=== PATIENT | male | born 1945 | race Caucasian/White ===

== ENCOUNTER 2018-02-19 08:40 | Emergency (ER) | payer MEDICARE ==
[~2018-02-19] VITALS: Ht 177.8 cm; Wt 100.0 kg
[2018-02-19 08:41] VITALS: BP 135/81
[2018-02-19] MEDS ORDERED: ciprofloxacin 250mg tablet PO ONE (09:00)
[2018-02-19] MEDS ORDERED: TETanus/Pertussis (Acell)/Diphther VAC/PF (Tdap-Adult) 0.5ml syringe IM ONE (09:00)
[2018-02-19] MEDS ORDERED: CIPR-230 PO (09:06)
== END 2018-02-19 09:22 | disposition home or self-care (01) ==
LOC: ER 08:40
DX: T25.221A Burn of second degree of right foot, initial encounter (principal); T31.0 Burns involving less than 10% of body surface; I10 Essential (primary) hypertension; E11.9 Type 2 diabetes mellitus without complications; F17.200 Nicotine dependence, unspecified, uncomplicated; Z79.899 Other long term (current) drug therapy
CPT/HCPCS: 82948; 90471; 90715; 99283; A6255; 16020; 99284

== ENCOUNTER 2020-05-18 11:02 | Emergency (ER) | payer MEDICARE ==
[~2020-05-18] VITALS: Ht 177.8 cm; Wt 107.0 kg
[2020-05-18] MEDS ORDERED: CLIN150C8 PO (12:06)
[2020-05-18 12:10] VITALS: BP 107/64
== END 2020-05-18 12:22 | disposition home or self-care (01) ==
LOC: ER 11:03
DX: M70.22 Olecranon bursitis, left elbow (principal); I10 Essential (primary) hypertension; Z79.899 Other long term (current) drug therapy
CPT/HCPCS: 99284

== ENCOUNTER 2021-05-23 05:55 | Day surgery (SDC) | payer MEDICARE ==
[2021-05-22 12:41] LABS: ANION GAP 10 (8-16); BLOOD UREA NITROGEN 37 MG/DL (7-18); BUN/CREATININE RATIO 20.9 (5.4-32.0); CALCIUM 9.1 MG/DL (8.5-10.1); CHLORIDE 106 MMOL/L (99-107); CREATININE 1.77 MG/DL (0.60-1.10); GLUCOSE 116 MG/DL (70-104); SODIUM 144 MMOL/L (135-145); TOTAL CARBON DIOXIDE 27.9 MMOL/L (24-32); eGFR 38 ML/MIN
[2021-05-22 12:45] LABS: PARTIAL THROMBOPLASTIN TIME 25 SECONDS (22-32)
[2021-05-22 13:08] LABS: BASOPHILS # (AUTO) 0.1 X10'3 (0-0.2); EOSINOPHILS # (AUTO) 0.1 X10'3 (0-0.9); HEMATOCRIT 37.7 % (42.0-52.0); LYMPHOCYTES # (AUTO) 1.5 X10'3 (1.1-4.8); MONOCYTES # (AUTO) 0.6 X10'3 (0-0.9); NEUTROPHILS # (AUTO) 3.4 X10'3 (1.8-7.7); PLATELET COUNT 205 X10'3 (140-440)
[2021-05-22 13:10] LABS: BASOPHILS % (AUTO) 1.2 % (0-1); HEMOGLOBIN 13.4 g/dl (14.0-17.9); LYMPHOCYTES % (AUTO) 26.5 % (21-51); MEAN CORPUSCULAR HEMOGLOBIN 38.4 PG (27.0-31.0); MEAN CORPUSCULAR HGB CONC 35.6 g/dL (33.0-36.5); MEAN CORPUSCULAR VOLUME 107.6 FL (78-98); MEAN PLATELET VOLUME 9.3 FL (7.4-10.4); MONOCYTES % (AUTO) 10.7 % (2-12); NEUTROPHILS % (AUTO) 59.6 % (42-75); RED CELL DISTRIBUTION WIDTH 12.7 % (11.5-14.5); WHITE BLOOD COUNT 5.8 X10'3 (4.5-11.0)
[~2021-05-23] VITALS: Ht 172.7 cm; Wt 107.0 kg
[2021-05-23] VITALS (12 sets, daily range): BP systolic 120–150; BP diastolic 52–81
[~2021-05-23 05:55] MED LIST: CLIN150C8 PO
[2021-05-23] MEDS ORDERED: normal saline 1,000 ML IV SCH (06:15)
[2021-05-23] MEDS ORDERED: LIDOcaine/PRILOcaine 5gm cream TP ONE (06:15)
[2021-05-23] MEDS ORDERED: LORazepam 0.5 MG tablet PO PRN (06:15)
[2021-05-23] MEDS ORDERED: diphenhydrAMINE 25mg capsule PO PRN (06:15)
[2021-05-23] MEDS ORDERED: sodium bicarbonate (8.4%) inj. 150 ML in dextrose 5%-water 1,000 ML IV ONE ×2 (07:35→09:50)
[2021-05-23] MEDS ORDERED: verapamil 2.5 mg/ml inj IV ONE (07:35)
[2021-05-23] MEDS ORDERED: midazolam 1 mg/ML 2ml injection ONE (07:35)
[2021-05-23] MEDS ORDERED: nitroGLYCERIN-Tridil 50MG/D5W 250 ML IV ONE (07:35)
[2021-05-23] MEDS ORDERED: LIDOcaine 1% (10mg/ml)w/preservative injection 20ml MDV ONE (07:36)
[2021-05-23] MEDS ORDERED: heparin 1,000unit/ml 10ml vial 10 ML ONE (07:36)
[2021-05-23] MEDS ORDERED: iohexol 350 MG/ML 50ML vial IV ONE ×2 (07:36→08:29)
[2021-05-23] MEDS ORDERED: iohexol 350MG/ML 100ml bottle IV ONE (07:36)
[2021-05-23] MEDS ORDERED: fentaNYL/PF 50MCG/1 ML 2ML syringe ONE (07:36)
[2021-05-23] MEDS ORDERED: CARV6.253 PO (07:49)
[2021-05-23] MEDS ORDERED: LOSA1TAB39 PO (07:49)
[2021-05-23] MEDS ORDERED: FLEC100T35 PO (07:49)
[2021-05-23] MEDS ORDERED: ALLO100T PO (07:49)
[2021-05-23] MEDS ORDERED: OMEP-50 PO (07:49)
[2021-05-23] MEDS ORDERED: APIX5TAB3 PO (07:50)
[2021-05-23 09:00] LABS: ISTAT HGB ART 11.6 g/dl (14.0-18.0); ISTAT Hct ART 34 %PCV (42-52); ISTAT O2 SATURATION ARTERIAL 98 % (95-98); ISTAT SOURCE ART
[2021-05-23] MEDS: ACETYLCYSTEINE 200 MG/1 ML 4 ML ORAL SOLUTION PO PRN ×2 (09:54→14:01)
[2021-05-27 06:49] LABS: ISTAT Hct MIX 34 %PCV (42-52); ISTAT O2 SATURATION MIX VENOUS 67 % (60-80); ISTAT SOURCE VEN
== END 2021-05-23 14:15 | disposition home or self-care (01) ==
LOC: SSTAY O 05:55
PROVIDERS: ATTEND Internal Medicine Cardiovascular Disease
DX: R94.39 Abnormal result of other cardiovascular function study (principal); I25.10 Atherosclerotic heart disease of native coronary artery without angina pectoris; I10 Essential (primary) hypertension; E78.5 Hyperlipidemia, unspecified; G47.33 Obstructive sleep apnea (adult) (pediatric); I48.0 Paroxysmal atrial fibrillation; E03.9 Hypothyroidism, unspecified; M10.9 Gout, unspecified; Z79.899 Other long term (current) drug therapy; Z98.49 Cataract extraction status, unspecified eye; Z98.890 Other specified postprocedural states; Z96.651 Presence of right artificial knee joint; Z87.891 Personal history of nicotine dependence; Z82.49 Family history of ischemic heart disease and other diseases of the circulatory system
CPT/HCPCS: 36415; 76937; 80048; 82803; 85014; 85025; 85610; 85730; 93005; 93460; 99152; 99153; C1751; C1769; C1894; J1644; J2001; J2250; J3010; J7030; Q0163; Q9967; A4620; A5120; J3490

== ENCOUNTER 2021-07-30 10:41 | Emergency (ER) | payer MEDICARE ==
[~2021-07-30] VITALS: Ht 172.7 cm; Wt 100.0 kg
[~2021-07-30 10:41] MED LIST changes: +ALLO100T PO; +APIX5TAB3 PO; +CARV6.253 PO; +FLEC100T35 PO; +LOSA1TAB39 PO; +OMEP-50 PO
[2021-07-30] MEDS ORDERED: loperamide 2mg capsule PO ONE (11:10)
[2021-07-30] MEDS ORDERED: acetaminophen 325mg tablet PO ONE (11:10)
[2021-07-30] MEDS ORDERED: ondansetron 4mg rapidly disintigrating tab PO ONE (11:10)
[2021-07-30] MEDS ORDERED: normal saline 1000ml 1,000 ML IV ONE (11:10)
[2021-07-30 11:18] VITALS: BP 128/82
[2021-07-30 11:46] LABS: ALANINE AMINOTRANSFERASE 45 U/L (12-78); ALKALINE PHOSPHATASE 40 IU/L (46-116); ANION GAP 14 (8-16); ASPARTATE AMINO TRANSFERASE 35 U/L (10-37); BILIRUBIN,TOTAL 0.8 MG/DL (0.1-1.0); BLOOD UREA NITROGEN 35 MG/DL (7-18); BUN/CREATININE RATIO 19.8 (5.4-32.0); CALCIUM 8.6 MG/DL (8.5-10.1); CHLORIDE 101 MMOL/L (99-107); CREATININE 1.77 MG/DL (0.60-1.10); GLUCOSE 130 MG/DL (70-104); POTASSIUM 4.1 MMOL/L (3.5-5.1); SODIUM 138 MMOL/L (135-145); TOTAL CARBON DIOXIDE 23.4 MMOL/L (24-32); eGFR 38 ML/MIN
[2021-07-30 12:28] LABS: BASOPHILS % (AUTO) 0.5 % (0-1); EOSINOPHILS % (AUTO) 0.2 % (0-6); HEMATOCRIT 43.8 % (42.0-52.0); HEMOGLOBIN 15.2 g/dl (14.0-17.9); LYMPHOCYTES # (AUTO) 0.6 X10'3 (1.1-4.8); LYMPHOCYTES % (AUTO) 10.7 % (21-51); MEAN CORPUSCULAR HEMOGLOBIN 37.4 PG (27.0-31.0); MEAN CORPUSCULAR HGB CONC 34.8 g/dL (33.0-36.5); MEAN CORPUSCULAR VOLUME 107.5 FL (78-98); MEAN PLATELET VOLUME 10.8 FL (7.4-10.4); MONOCYTES # (AUTO) 0.3 X10'3 (0-0.9); MONOCYTES % (AUTO) 5.3 % (2-12); NEUTROPHILS # (AUTO) 4.6 X10'3 (1.8-7.7); NEUTROPHILS % (AUTO) 83.3 % (42-75); PLATELET COUNT 136 X10'3 (140-440); RED BLOOD COUNT 4.07 X10'6 (4.70-6.10); RED CELL DISTRIBUTION WIDTH 13.8 % (11.5-14.5); WHITE BLOOD COUNT 5.5 X10'3 (4.5-11.0)
[2021-07-30] MEDS ORDERED: ONDA-104 PO (12:38)
[2021-07-30] MEDS ORDERED: LOPE2CAP PO (12:38)
== END 2021-07-30 13:40 | disposition home or self-care (01) ==
LOC: ER 10:41
DX: U07.1 COVID-19 (principal); R19.7 Diarrhea, unspecified; R11.0 Nausea; I10 Essential (primary) hypertension; Z79.899 Other long term (current) drug therapy
CPT/HCPCS: 36415; 71045; 80053; 83735; 83880; 84145; 85025; 85379; 93005; 96360; 99285; J7030